=== PATIENT | female | born 1950 | race African-American/Black ===

== ENCOUNTER 2024-02-24 07:45 | Emergency (ER) | payer OTHER ==
[~2024-02-24] VITALS: Ht 152.4 cm; Wt 46.0 kg
[2024-02-24 07:50] VITALS: O2SAT 97
[2024-02-24 08:20] LABS: BASOPHILS % 1.2 % (0.0-2.0); DIFFERENTIAL COMMENT 0; EOSINOPHILS % 3.7 % (0.0-5.0); HEMATOCRIT. 40.9 % (36.0-48.0); HEMOGLOBIN. 12.1 g/dL (12.0-16.0); LYMPHOCYTES % 25.7 % (20.0-50.0); MEAN CORPUSCULAR HGB CONC 29.6 g/dL (31.0-37.0); MEAN CORPUSCULAR VOLUME 84.4 fL (81.0-99.0); MEAN PLATELET VOLUME 8.4 fl (7.4-10.4); NEUTROPHILS % 63.4 % (40.0-76.0); PLATELET 384 x1000/uL (130-400); RED BLOOD CELL COUNT 4.85 mill/uL (4.2-5.4); WHITE BLOOD COUNT 10.4 x1000/uL (4.5-11.0)
[2024-02-24 08:28] LABS: CHLORIDE 110 mEq/L (98-107); POTASSIUM 3.5 mEq/L (3.5-5.1); SODIUM 140 mEq/L (136-145)
[2024-02-24 08:29] LABS: CARBON DIOXIDE 19 mEq/L (21-32)
[2024-02-24 08:30] LABS: CALCIUM 9.3 mg/dL (8.7-10.4)
[2024-02-24] MEDS: FUROSEMIDE 40MG/4ML VIAL IVP ONE (08:31)
[2024-02-24 08:34] LABS: CREATININE 2.1 mg/dL (0.6-1.0); GLUCOSE 167 mg/dL (70-105); UREA NITROGEN BLOOD 23 mg/dL (9-23)
[2024-02-24 08:55] LABS: TROPONIN I HIGH SENSITIVITY 37 ng/L (3.0-34)
[2024-02-24 09:05] VITALS: PULSE 128; RESP 28
[2024-02-24] MEDS: IPRATROPIUM BROMIDE (0.02%) 0.5MG/2.5ML NEB HHN STA (09:05)
[2024-02-24] MEDS: ALBUTEROL (0.083%) 2.5MG/3ML NEB HHN SCH (09:05)
[2024-02-24] MEDS: NITROGLYCERIN 0.2MG/HR PATCH TOP ONE (09:15)
[2024-02-24] MEDS: HYDRALAZINE 20MG/ML VIAL IV ONE (12:22)
[2024-02-24 12:42] VITALS: BP 163/98; TEMP 37.00296; O2SAT 97
[2024-02-24 13:00] VITALS: PULSE 124; RESP 28
[2024-02-24] MEDS: ALBUTEROL (0.5%) 2.5MG/0.5ML NEB HHN ONE (13:00)
== END 2024-02-24 13:40 | disposition short-term general hospital (02) ==
LOC: ER 08:16
DX: J96.01 Acute respiratory failure with hypoxia (principal); I50.9 Heart failure, unspecified; I11.0 Hypertensive heart disease with heart failure
CPT/HCPCS: 99285; 96374; 71045; 96375; 80048; 83880; 85025; 84484; 36415; 93005; 94640; J1940; J0360